=== PATIENT | male | born 1935 | race Caucasian/White ===

== ENCOUNTER 2024-10-15 22:55 | Observation (INO) | payer OTHER ==
[2024-10-15 22:59] VITALS: BMI 26.4
[2024-10-16 00:01] LABS: ABSOLUTE IMMATURE GRANULOCYTES 0.06 x10^3/uL (0.0-0.031); BASOPHILS # 0.06 x10^3/uL (0.01-0.08); EOSINOPHIL % 2.5 % (0.8-7.0); EOSINOPHILS # 0.21 x10^3/uL (0.04-0.54); MCHC 33.4 g/dl (32.3-36.5); MEAN CELL VOLUME 93.5 fl (79.0-92.2); MEAN PLT VOLUME 9.1 fl (9.4-12.4); MONOCYTE # 0.74 x10^3/uL (0.30-0.82); MONOCYTE % 8.9 % (5.3-12.2); RDW 13.0 % (12.6-16.6)
[2024-10-16 00:22] LABS: CO2 25.0 mmol/L (21-32); GLUCOSE,RANDOM 142.0 mg/dL (74-106)
[2024-10-16 00:25] LABS: CREATININE 0.9 mg/dL (0.55-1.3)
[2024-10-16 00:26] LABS: SGOT/AST 23.0 U/L (15-37); SGPT/ALT 37.0 U/L (13-61)
[2024-10-16 00:27] LABS: TOT PROT 6.4 g/dl (6.4-8.2)
[2024-10-16 00:28] LABS: ALK PHOS 70.0 U/L (45-117)
[2024-10-16] MEDS ORDERED: HALOPERIDOL LACTATE 5 MG/ML ONE (01:45)
[2024-10-16 02:02] LABS: HIV INTERPRETATION NEGATIVE (NEGATIVE)
[2024-10-16 02:04] LABS: HCV DIAGNOSTIC IN-HOUSE W/RFLX NON-REACTIVE (NONREACTIVE)
[2024-10-16] MEDS: HALOPERIDOL LACTATE 5 MG/ML IM ONE (02:04)
[2024-10-16] MEDS: INSULIN ASPART SLIDING SCALE (NOVOLOG) 1 VIAL SQ SCH (07:55)
[2024-10-16] MEDS ORDERED: LORazepam 4 MG/1 ML VIAL IVPUSH PRN ×2 (08:00→11:23)
[2024-10-16] MEDS ORDERED: SENNOSIDES 8.6MG TABLET (FP) PO ONE (08:52)
[2024-10-16] MEDS ORDERED: ASPIRIN COATED 81 MG TABLET.EC ONE (08:52)
[2024-10-16] MEDS ORDERED: MULTIVITAMINS (DAILY MVI) TABLET (FP) ONE (08:52)
[2024-10-16] MEDS ORDERED: TAMSULOSIN HCL 0.4 MG CAP ONE (08:53)
[2024-10-16] MEDS ORDERED: ERTAPENEM SODIUM 1 GM VIAL ONE (09:00)
[2024-10-16] MEDS: TAMSULOSIN HCL 0.4 MG CAP PO SCH (09:58)
[2024-10-16] MEDS: EMPAGLIFLOZIN (JARDIANCE) 10 MG TABLET PO SCH (09:58)
[2024-10-16] MEDS: VENLAFAXINE HCL 75 MG E.R. CAPSULES PO SCH (09:58)
[2024-10-16] MEDS: ASPIRIN COATED 81 MG TABLET.EC PO SCH (09:58)
[2024-10-16] MEDS: ERTAPENEM SODIUM 1 GM in SODIUM CHLORIDE 50 ML IVPB SCH (09:58)
[2024-10-16] MEDS: SENNOSIDES 8.6MG TABLET (FP) PO SCH (09:59)
[2024-10-16] MEDS: MULTIVITAMINS (DAILY MVI) TABLET (FP) PO SCH (10:00)
[2024-10-16 13:40] LABS: CO2 26.0 mmol/L (21-32); CREATININE 0.8 mg/dL (0.55-1.3); GLUCOSE,RANDOM 133.0 mg/dL (74-106)
[2024-10-16] MEDS: OXYBUTYNIN CHLORIDE 5 MG TABLET PO SCH (18:26)
[2024-10-16 19:39] VITALS: RESP 18
[2024-10-16] MEDS: MELATONIN 1 MG TABLET PO SCH (21:19)
[2024-10-16] MEDS: POLYETHYLENE GLYCOL (HEALTHYLAX) 3350 17 GM PACKET PO SCH (21:19)
[2024-10-16] MEDS: ATORVASTATIN CA 10 MG TABLET (FP) PO SCH (21:19)
[2024-10-16] MEDS: DONEPEZIL HCL 10 MG TABLET (FP) PO SCH (21:19)
[2024-10-17 01:14] VITALS: TEMP 98.1
[2024-10-17 02:28] VITALS: BP 124/71; PULSE 62
== END 2024-10-17 02:42 | disposition home or self-care (01) ==
LOC: EDSEX 22:55 → JER 22:55 → INTOOBSV 23:32 → JERBED 23:32 → UNDOADMOB 23:32 → JERBED 10-16 02:33 → UNDODISOB 10-17 02:42
PROVIDERS: ADMIT Internal Medicine; ATTEND Internal Medicine
PROC: 3E03329 Introduction of Other Anti-infective into Peripheral Vein, Percutaneous Approach (ICD-10-PCS; principal; 2024-10-16)
PROC: 3E033NZ Introduction of Analgesics, Hypnotics, Sedatives into Peripheral Vein, Percutaneous Approach (ICD-10-PCS; 2024-10-16)
DX: N39.0 Urinary tract infection, site not specified (principal); R56.9 Unspecified convulsions; E78.5 Hyperlipidemia, unspecified; F03.90 Unspecified dementia, unspecified severity, without behavioral disturbance, psychotic disturbance, mood disturbance, and anxiety; E11.9 Type 2 diabetes mellitus without complications; I10 Essential (primary) hypertension
CPT/HCPCS: 36415; 70450-TC; 71045-TC-FY; 80048; 80053; 82962; 83036; 83605; 83735; 84100; 84484; 85025; 85610; 85730; 86803; 86850; 86900; 86901; 87389; 93005; 93010; 96365; 96372; 99285-25; G0378